=== PATIENT | female | born 1990 | race Caucasian/White ===

== ENCOUNTER 2016-12-25 12:24 | Outpatient (CLI) | payer MEDICAID ==
[2016-12-25 13:42] LABS: APPEARANCE,URINE CLOUDY; BILIRUBIN,URINE NEGATIVE (NEGATIVE); GLUCOSE, URINE NEGATIVE (NEGATIVE); KETONES,URINE NEGATIVE (NEGATIVE); LEUKOCYTE ESTERASE,URINE LARGE (NEGATIVE); NITRITE,URINE NEGATIVE (NEGATIVE); PROTEIN,URINE NEGATIVE (NEGATIVE); URINE SPECIFIC GRAVITY 1.008; UROBILINOGEN,URINE NEGATIVE mg/dL (<2.0)
[2016-12-25 13:46] LABS: URINE BARBITURATES SCREEN NEGATIVE; URINE METHADONE SCREEN NEGATIVE; URINE OPIATES LOW NEGATIVE; URINE PHENCYCLIDINE SCREEN NEGATIVE
--- NOTE | 2016-12-25 14:13 | Non Stress Test Report ---
Non Stress Test Datetime Report Generated by CPN: 12/25/2016 14:13 DEMOGRAPHIC EGA NST: 34.0 INDICATION Indication for Study: Other Indication for Study (NST) Other: lc VITAL SIGNS Temperature - NST: 99.2 Pulse - NST: 77 RESP - NST: 16 NBPSYS NST: 108 NBPDIA NST: 68 MONITORING Monitor Explained: Monitor Explained; Test Explained; Patient Verbalized Understanding Time on Monitor: 12/25/2016 13:00 Time off Monitor: 12/25/2016 13:57 NST Duration: 57 NST INTERVENTIONS NST Interventions: PO Hydration; Reposition Patient Physician Notified NST: H RASHIDA, CNM BABY A: [id number] BABY A Movement : Present Contraction Frequency : rare FHR Baseline : 125 Accelerations : 15X15 Decelerations : None Variability : Moderate 6-25bpm NST Review: Meets Criteria for Reactive NST NST Review and Verified By : JAKY DORSEY RN NST Results: Reactive NST REPORT Report Trigger: Send Report
--- NOTE | 2016-12-25 17:16 | L&D Discharge Summary ---
OB Discharge Summary Datetime Report Generated by CPN: 12/25/2016 17:16 DISCHARGE DIAGNOSIS Diagnosis/Symptoms: Other Diagnoses/Symptoms Other: migraine headache DIET/ACTIVITY/RESTRICTIONS Diet: Regular Activity: Normal Activity TEACHING/INSTRUCTIONS/REFERRALS Instructions Given To: patient Instructions Understood: Patient Verbalized Understanding Referrals: None Educational Materials- Other: kick counts /dehydration DISCHARGE INFORMATION Discharged AMA: No Discharge Date/Time: 12/25/2016 14:12 Discharged To: Home Discharge Provider Name: H Micha CNM Accompanied By: self Discharge Method: Ambulatory Condition: Stable FOLLOW UP INFORMATION Follow Up With: [facility] Follow Up On: As Scheduled Follow Up Phone Number: [facility] -
--- NOTE | 2016-12-27 22:50 | L&D General Admission ---
General Admit Datetime Report Generated by CPN: 12/27/2016 22:45 INFORMATION Patient Age: 26 (12/25/2016 12:24:QS system process) EDC: 02/05/2017 00:00 (12/25/2016 12:45:Ashley Bellavance, RNC) CARE Height (in): 66 (12/25/2016 14:15:QS system process) ALLERGIES Medication Allergies: No Known Allergies (08/30/2016) (12/25/2016 12:24:QS system process) DEMOGRAPHICS Address: [address] [place] [id number] (12/25/2016 12:24:QS system process) Zipcode: [address] (12/25/2016 12:24:QS system process) Home (12/25/2016 12:24:QS system process) Work (12/25/2016 12:24:QS system process) SSN: [id number] (12/25/2016 12:24:QS system process) Next of Kin Name: NAYELI FERREIRA (12/25/2016 12:24:QS system process) Next of Kin (12/25/2016 12:24:QS system process) Next of Kin Relationship: MO (12/25/2016 12:24:QS system process) Date of : 1990 (12/25/2016 12:24:QS system process) Marital Status: Single (12/25/2016 12:24:QS system process) Sex: Female (12/25/2016 12:24:QS system process) Race: (12/25/2016 12:24:QS system process) Ethnicity: Non- or (12/25/2016 12:24:QS system process) Latter Day: Other (12/25/2016 12:24:QS system process)
--- NOTE | 2016-12-27 22:50 | L&D Discharge Summary ---
OB Discharge Summary Datetime Report Generated by CPN: 12/27/2016 22:45 DISCHARGE DIAGNOSIS Diagnosis/Symptoms: Other Diagnoses/Symptoms Other: migraine headache Gestation: 34.0 DIET/ACTIVITY/RESTRICTIONS Diet: Regular Activity: Normal Activity TEACHING/INSTRUCTIONS/REFERRALS Instructions Given To: patient Instructions Understood: Patient Verbalized Understanding Referrals: None Educational Materials- Other: kick counts /dehydration DISCHARGE INFORMATION Discharged AMA: No Discharge Date/Time: 12/25/2016 14:12 Discharged To: Home Discharge Provider Name: H Micha CNM Accompanied By: self Discharge Method: Ambulatory Condition: Stable FOLLOW UP INFORMATION Follow Up With: [facility] Follow Up On: As Scheduled Follow Up Phone Number: [facility] -
--- NOTE | 2016-12-27 22:50 | Antepartum Discharge Summary ---
Antepartum DC Datetime Report Generated by CPN: 12/27/2016 22:45 DIET/ACTIVITY/RESTRICTIONS Diet: Regular (12/25/2016 14:00:Ashley Bellavance, RNC) Activity: Normal Activity (12/25/2016 14:00:Ashley Bellavance, RNC) TEACHING/INSTRUCTIONS/REFERRALS Instructions Given To: patient (12/25/2016 14:00:Ashley Bellavance, RNC) Instructions Understood: Patient Verbalized Understanding (12/25/2016 14:00:Ashley Bellavance, RNC) Referrals: None (12/25/2016 14:00:Ashley Bellavance, RNC) Educational Materials- Other: kick counts /dehydration (12/25/2016 14:00:Ashley Bellavance, RNC) DISCHARGE INFORMATION Discharged AMA: No (12/25/2016 14:00:Ashley Bellavance, RNC) Discharge Date/Time: 12/25/2016 14:12 (12/25/2016 14:00:Ashley Bellavance, RNC) Discharged To: Home (12/25/2016 14:00:Ashley Bellavance, RNC) Discharge Provider Name: Crispin Muse CNM (12/25/2016 14:00:Ashley Bellavance, RNC) Accompanied By: self (12/25/2016 14:00:Ashley Bellavance, RNC) Discharge Method: Ambulatory (12/25/2016 14:00:Ashley Bellavance, RNC) Condition: Stable (12/25/2016 14:00:Ashley Bellavance, RNC) FOLLOW UP INFORMATION Follow Up With: [facility] (12/25/2016 14:00:ASHA Manrique) Follow Up On: As Scheduled (12/25/2016 14:00:ASHA Manrique) Follow Up Phone Number: [facility] - (12/25/2016 14:00:ASHA Manrique)
--- NOTE | 2016-12-28 04:49 | Antepartum Discharge Summary ---
Antepartum DC Datetime Report Generated by CPN: 12/28/2016 04:46 DIET/ACTIVITY/RESTRICTIONS Diet: Regular (12/25/2016 14:00:Ashley Bellavance, RNC) Activity: Normal Activity (12/25/2016 14:00:Ashley Bellavance, RNC) TEACHING/INSTRUCTIONS/REFERRALS Instructions Given To: patient (12/25/2016 14:00:Ashley Bellavance, RNC) Instructions Understood: Patient Verbalized Understanding (12/25/2016 14:00:Ashley Bellavance, RNC) Referrals: None (12/25/2016 14:00:Ashley Bellavance, RNC) Educational Materials- Other: kick counts /dehydration (12/25/2016 14:00:Ashley Bellavance, RNC) DISCHARGE INFORMATION Discharged AMA: No (12/25/2016 14:00:Ashley Bellavance, RNC) Discharge Date/Time: 12/25/2016 14:12 (12/25/2016 14:00:Ashley Bellavance, RNC) Discharged To: Home (12/25/2016 14:00:Ashley Bellavance, RNC) Discharge Provider Name: Crispin Muse CNM (12/25/2016 14:00:Ashley Bellavance, RNC) Accompanied By: self (12/25/2016 14:00:Ashley Bellavance, RNC) Discharge Method: Ambulatory (12/25/2016 14:00:Ashley Bellavance, RNC) Condition: Stable (12/25/2016 14:00:Ashley Bellavance, RNC) FOLLOW UP INFORMATION Follow Up With: [facility] (12/25/2016 14:00:ASHA Manrique) Follow Up On: As Scheduled (12/25/2016 14:00:ASHA Manrique) Follow Up Phone Number: [facility] - (12/25/2016 14:00:ASHA Manrique)
--- NOTE | 2016-12-28 04:49 | L&D Discharge Summary ---
OB Discharge Summary Datetime Report Generated by CPN: 12/28/2016 04:46 DISCHARGE DIAGNOSIS Diagnosis/Symptoms: Other Diagnoses/Symptoms Other: migraine headache Gestation: 34.0 DIET/ACTIVITY/RESTRICTIONS Diet: Regular Activity: Normal Activity TEACHING/INSTRUCTIONS/REFERRALS Instructions Given To: patient Instructions Understood: Patient Verbalized Understanding Referrals: None Educational Materials- Other: kick counts /dehydration DISCHARGE INFORMATION Discharged AMA: No Discharge Date/Time: 12/25/2016 14:12 Discharged To: Home Discharge Provider Name: H Micha CNM Accompanied By: self Discharge Method: Ambulatory Condition: Stable FOLLOW UP INFORMATION Follow Up With: [facility] Follow Up On: As Scheduled Follow Up Phone Number: [facility] -
--- NOTE | 2016-12-28 04:49 | L&D General Admission ---
General Admit Datetime Report Generated by CPN: 12/28/2016 04:46 INFORMATION Patient Age: 26 (12/25/2016 12:24:QS system process) EDC: 02/05/2017 00:00 (12/25/2016 12:45:Ashley Bellavance, RNC) CARE Height (in): 66 (12/25/2016 14:15:QS system process) ALLERGIES Medication Allergies: No Known Allergies (08/30/2016) (12/25/2016 12:24:QS system process) DEMOGRAPHICS Address: [address] [place] [id number] (12/25/2016 12:24:QS system process) Zipcode: [address] (12/25/2016 12:24:QS system process) Home (12/25/2016 12:24:QS system process) Work (12/25/2016 12:24:QS system process) SSN: [id number] (12/25/2016 12:24:QS system process) Next of Kin Name: NAYELI FERREIRA (12/25/2016 12:24:QS system process) Next of Kin (12/25/2016 12:24:QS system process) Next of Kin Relationship: [place] (12/25/2016 12:24:QS system process) Date of : 1990 (12/25/2016 12:24:QS system process) Marital Status: Single (12/25/2016 12:24:QS system process) Sex: Female (12/25/2016 12:24:QS system process) Race: (12/25/2016 12:24:QS system process) Ethnicity: Non- or (12/25/2016 12:24:QS system process) Sikh: Other (12/25/2016 12:24:QS system process)
--- NOTE | 2016-12-28 10:50 | L&D Discharge Summary ---
OB Discharge Summary Datetime Report Generated by CPN: 12/28/2016 10:45 DISCHARGE DIAGNOSIS Diagnosis/Symptoms: Other Diagnoses/Symptoms Other: migraine headache Gestation: 34.0 DIET/ACTIVITY/RESTRICTIONS Diet: Regular Activity: Normal Activity TEACHING/INSTRUCTIONS/REFERRALS Instructions Given To: patient Instructions Understood: Patient Verbalized Understanding Referrals: None Educational Materials- Other: kick counts /dehydration DISCHARGE INFORMATION Discharged AMA: No Discharge Date/Time: 12/25/2016 14:12 Discharged To: Home Discharge Provider Name: H Micha CNM Accompanied By: self Discharge Method: Ambulatory Condition: Stable FOLLOW UP INFORMATION Follow Up With: [facility] Follow Up On: As Scheduled Follow Up Phone Number: [facility] -
--- NOTE | 2016-12-28 10:50 | Antepartum Discharge Summary ---
Antepartum DC Datetime Report Generated by CPN: 12/28/2016 10:45 DIET/ACTIVITY/RESTRICTIONS Diet: Regular (12/25/2016 14:00:Ashley Bellavance, RNC) Activity: Normal Activity (12/25/2016 14:00:Ashley Bellavance, RNC) TEACHING/INSTRUCTIONS/REFERRALS Instructions Given To: patient (12/25/2016 14:00:Ashley Bellavance, RNC) Instructions Understood: Patient Verbalized Understanding (12/25/2016 14:00:Ashley Bellavance, RNC) Referrals: None (12/25/2016 14:00:Ashley Bellavance, RNC) Educational Materials- Other: kick counts /dehydration (12/25/2016 14:00:Ashley Bellavance, RNC) DISCHARGE INFORMATION Discharged AMA: No (12/25/2016 14:00:Ashley Bellavance, RNC) Discharge Date/Time: 12/25/2016 14:12 (12/25/2016 14:00:Ashley Bellavance, RNC) Discharged To: Home (12/25/2016 14:00:Ashley Bellavance, RNC) Discharge Provider Name: Crispin Muse CNM (12/25/2016 14:00:Ashley Bellavance, RNC) Accompanied By: self (12/25/2016 14:00:Ashley Bellavance, RNC) Discharge Method: Ambulatory (12/25/2016 14:00:Ashley Bellavance, RNC) Condition: Stable (12/25/2016 14:00:Ashley Bellavance, RNC) FOLLOW UP INFORMATION Follow Up With: [facility] (12/25/2016 14:00:ASHA Manrique) Follow Up On: As Scheduled (12/25/2016 14:00:ASHA Manrique) Follow Up Phone Number: [facility] - (12/25/2016 14:00:ASHA Manrique)
--- NOTE | 2016-12-28 10:50 | L&D General Admission ---
General Admit Datetime Report Generated by CPN: 12/28/2016 10:45 INFORMATION Patient Age: 26 (12/25/2016 12:24:QS system process) EDC: 02/05/2017 00:00 (12/25/2016 12:45:Ashley Bellavance, RNC) CARE Height (in): 66 (12/25/2016 14:15:QS system process) ALLERGIES Medication Allergies: No Known Allergies (08/30/2016) (12/25/2016 12:24:QS system process) DEMOGRAPHICS Address: [address] [place] [id number] (12/25/2016 12:24:QS system process) Zipcode: [address] (12/25/2016 12:24:QS system process) Home (12/25/2016 12:24:QS system process) Work (12/25/2016 12:24:QS system process) SSN: [id number] (12/25/2016 12:24:QS system process) Next of Kin Name: NAYELI FERREIRA (12/25/2016 12:24:QS system process) Next of Kin (12/25/2016 12:24:QS system process) Next of Kin Relationship: [place] (12/25/2016 12:24:QS system process) Date of : 1990 (12/25/2016 12:24:QS system process) Marital Status: Single (12/25/2016 12:24:QS system process) Sex: Female (12/25/2016 12:24:QS system process) Race: (12/25/2016 12:24:QS system process) Ethnicity: Non- or (12/25/2016 12:24:QS system process) Tenriism: Other (12/25/2016 12:24:QS system process)
== END 2016-12-25 14:16 | disposition home or self-care (01) ==
LOC: LC 12:24
PROVIDERS: ATTEND Obstetrics & Gynecology
PROC: 4A1HXCZ Monitoring of Products of Conception, Cardiac Rate, External Approach (ICD-10-PCS; principal; 2016-12-25)
DX: O99.353 Diseases of the nervous system complicating pregnancy, third trimester (principal); G43.909 Migraine, unspecified, not intractable, without status migrainosus; Z3A.34 34 weeks gestation of pregnancy
CPT/HCPCS: 59025; 80307; 81001

== ENCOUNTER 2017-01-12 07:51 | Outpatient (CLI) | payer MEDICAID ==
[2017-01-12 08:43] LABS: ABSOLUTE LYMPHOCYTES (AUTO) 1.4 10^3/uL (0.5-4.7); ABSOLUTE NEUT (AUTO) 10.6 10^3/uL (1.7-8.2); BASOPHILS % (AUTO) 0.3 % (0-2); EOSINOPHILS % (AUTO) 0.2 % (0-6); HEMATOCRIT 28.4 % (36.0-47.0); HEMOGLOBIN 9.5 g/dL (12.0-15.5); HGB HCT DIFFERENCE 0.1; LYMPHOCYTES % (AUTO) 10.8 % (13-45); MEAN CORPUSCULAR HEMOGLOBIN 28.1 pg (27.0-33.4); MEAN CORPUSCULAR HGB CONC 33.4 g/dL (32.0-36.0); MEAN CORPUSCULAR VOLUME 84 fl (80-97); MONOCYTES % (AUTO) 7.6 % (3-13); RED BLOOD COUNT 3.38 10^6/uL (3.72-5.28); RED CELL DISTRIBUTION WIDTH 13.2 % (11.5-14.0); SEGMENTED NEUTROPHILS % (AUTO) 81.1 % (42-78); WHITE BLOOD COUNT 13.1 10^3/uL (4.0-10.5)
[2017-01-12] MEDS ORDERED: TERBUTALINE SULFATE INJ/PF 1 MG/1 ML SDV ONE (08:46)
[2017-01-12 08:59] LABS: APPEARANCE,URINE CLOUDY; BILIRUBIN,URINE NEGATIVE (NEGATIVE); GLUCOSE, URINE NEGATIVE (NEGATIVE); KETONES,URINE NEGATIVE (NEGATIVE); LEUKOCYTE ESTERASE,URINE LARGE (NEGATIVE); NITRITE,URINE NEGATIVE (NEGATIVE); PROTEIN,URINE NEGATIVE (NEGATIVE)
[2017-01-12 09:28] LABS: URINE BARBITURATES SCREEN NEGATIVE; URINE METHADONE SCREEN NEGATIVE; URINE OPIATES LOW NEGATIVE; URINE PHENCYCLIDINE SCREEN NEGATIVE
--- NOTE | 2017-01-12 09:43 | Operative Report ---
Operative Report DATE OF SURGERY: 01/12/17 PREOPERATIVE DIAGNOSIS: Breech POSTOPERATIVE DIAGNOSIS: Same OPERATION: External cephalic version SURGEON: CHERIE MELCHOR ANESTHESIA: Other - none TISSUE REMOVED OR ALTERED: None COMPLICATIONS: None ESTIMATED BLOOD LOSS: none INTRAOPERATIVE FINDINGS: Successful version PROCEDURE: Patient was given subcutaneous terbutaline. Consents were signed for external cephalic version. Ultrasound showed a lori breech baby with the head in the right upper quadrant. Adequate fluid was noted. The breech was delivered brought up out of the pelvis front flip attempted but was unsuccessful. Back flip was successful in converting the baby to vertex. We'll monitor for 30 minutes and hopefully she'll be able go home later today.
== END 2017-01-12 10:46 | disposition home or self-care (01) ==
LOC: LC 07:51
PROVIDERS: ATTEND Obstetrics & Gynecology
PROC: 4A1HXCZ Monitoring of Products of Conception, Cardiac Rate, External Approach (ICD-10-PCS; principal; 2017-01-12)
PROC: 10S0XZZ Reposition Products of Conception, External Approach (ICD-10-PCS; 2017-01-12)
DX: O32.1XX0 Maternal care for breech presentation, not applicable or unspecified (principal); Z3A.36 36 weeks gestation of pregnancy
CPT/HCPCS: 59025; 36415; 85025; 81005; 80307; 59412; J3105

== ENCOUNTER 2017-02-01 06:57 | Inpatient (IN) | payer MEDICAID ==
[2017-02-01] MEDS ORDERED: CEFAZOLIN 2 GM/D5W RTU 2 GM/50 ML RTUPB IV PRN (07:31)
[2017-02-01 07:52] LABS: URINE BARBITURATES SCREEN NEGATIVE; URINE METHADONE SCREEN NEGATIVE; URINE OPIATES LOW NEGATIVE; URINE PHENCYCLIDINE SCREEN NEGATIVE
[2017-02-01] MEDS ORDERED: RINGERS SOLUTION,LACTATED 1,000 ML IV PRN ×3 (07:59→11:10)
[2017-02-01 08:37] LABS: ABSOLUTE LYMPHOCYTES (AUTO) 1.4 10^3/uL (0.5-4.7); ABSOLUTE MONOCYTES (AUTO) 0.7 10^3/uL (0.1-1.4); ABSOLUTE NEUT (AUTO) 9.2 10^3/uL (1.7-8.2); BASOPHILS % (AUTO) 0.2 % (0-2); EOSINOPHILS % (AUTO) 0.2 % (0-6); HEMATOCRIT 29.3 % (36.0-47.0); HEMOGLOBIN 9.3 g/dL (12.0-15.5); HGB HCT DIFFERENCE -1.4; LYMPHOCYTES % (AUTO) 12.2 % (13-45); MEAN CORPUSCULAR HEMOGLOBIN 26.1 pg (27.0-33.4); MEAN CORPUSCULAR HGB CONC 31.8 g/dL (32.0-36.0); MEAN CORPUSCULAR VOLUME 82 fl (80-97); MONOCYTES % (AUTO) 6.5 % (3-13); RED BLOOD COUNT 3.56 10^6/uL (3.72-5.28); RED CELL DISTRIBUTION WIDTH 14.9 % (11.5-14.0); SEGMENTED NEUTROPHILS % (AUTO) 80.9 % (42-78); WHITE BLOOD COUNT 11.4 10^3/uL (4.0-10.5)
[2017-02-01] MEDS ORDERED: FENTANYL CITRATE INJ/PF 100 MCG/2 ML AMPUL IV PRN ×3 (09:59)
[2017-02-01] MEDS ORDERED: OXYCODONE-ACETAMINOPHEN 5-325 MG TABLET PO PRN ×3 (09:59→11:10)
[2017-02-01] MEDS ORDERED: PROMETHAZINE HCL INJ 25 MG/1 ML VIAL IV PRN ×3 (09:59→11:10)
[2017-02-01] MEDS ORDERED: MORPHINE SULFATE 10 MG/ML INJ IV PRN (09:59)
[2017-02-01] MEDS ORDERED: DIPHENHYDRAMINE HCL 50 MG/ML VIAL IV PRN (09:59)
[2017-02-01] MEDS ORDERED: MEPERIDINE HCL/PF INJ 25 MG/1 ML DISP.SYRIN IV PRN (09:59)
[2017-02-01] MEDS ORDERED: OXYTOCIN 10 UNIT/ML VIAL ONE (11:05)
[2017-02-01] MEDS ORDERED: FENTANYL CITRATE INJ/PF 100 MCG/2 ML AMPUL ONE (11:05)
[2017-02-01] MEDS ORDERED: MIDAZOLAM 2 MG/2 ML INJ ONE (11:06)
[2017-02-01] MEDS ORDERED: ACETAMINOPHEN 100 ML IV ONE (11:06)
[2017-02-01] MEDS ORDERED: HYDROMORPHONE HCL INJ/PF 2 MG/ML AMPULE IV PRN (11:10)
[2017-02-01] MEDS ORDERED: ACETAMINOPHEN 100 ML IV PRN (11:10)
[2017-02-01] MEDS ORDERED: SIMETHICONE 80 MG TAB.CHEW PO PRN (11:10)
[2017-02-01] MEDS ORDERED: DIPH/PERTUSS(ACELL)/TETANUS VAC/PF 0.5 ML SYR (>=10YO) IM PRN (11:10)
[2017-02-01] MEDS ORDERED: ACETAMINOPHEN 325 MG TABLET PO PRN (11:10)
[2017-02-01] MEDS ORDERED: MEASLES,MUMPS&RUBELLA VACC/PF 0.5 ML VIAL SUBCUT PRN (11:10)
[2017-02-01] MEDS ORDERED: OXYTOCIN/NORMAL SALINE 1,000 ML IV PRN (11:10)
--- NOTE | 2017-02-01 11:30 | Brief Operative Note ---
BRIEF OPERATIVE REPORT DATE OF SURGERY: 02/01/17 TIME OF SURGERY: 11:20 PREOPERATIVE DIAGNOSIS: 39+3ega, Primary HSV outbreak POSTOPERATIVE DIAGNOSIS: NEFTALI - delivered SURGEON: CRISTOBAL WELLS FINDINGS: normal uterus, normal tubes/ovaries. VMI, 3940g, Apgars 8/9 COMPLICATIONS: None ESTIMATED BLOOD LOSS: 700ml TISSUE REMOVED OR ALTERED: placenta and cord sent not to patholgy TECHNICAL PROCEDURE: Primary LTCS
--- NOTE | 2017-02-01 11:31 | PDOC DELIVERY SUMMARY ---
Delivery Summary - Maternal Hx : Hx Para: IV Hx # Term Pregnancies: 3 Hx Total # of Abortions (Sponateous & Elective): 2 Number of Living Children: 3 ELIZABETH: 02/05/17 Gestational Age: 39+3 Ruptured Membranes: AROM Time of Rupture: 09:58 Fluids: Clear - Delivery Labor: Not In Labor Presentation: Vertex Heart Rate Monitoring: Done Pre-Operatively Uterine Contraction Monitoring: External Support Person Present: Yes Location: OR : Scheduled Placenta: Within Normal Limits Placenta Description: normal Number of Vessels (Cord): 3 Nuchal Cord: No Delivery of Placenta Date: 02/01/17 Delivery of Placenta Time: 10:00 - Medications Type of Anesthesia:: Spinal - Intrapartum Medications Intrapartum Medications: Pitocin - Assess and Care Baby 1 Male Delivery of Infant Date: 02/01/17 Delivery of Infant Time: 09:59 Preprinted Number On Band: [id number] Infant Skin to Skin: No To Nursery At: 10:07 Mode of Transport: Bassinet Infant Weight: 39.4 kg Infant Length: 21.75 in - Delivery Personnel Nursery RN: FRED VALDIVIA RN: CALLY FARIAS RN: BLAIR VILLALBA MD: CRISTOBAL WELLS Can Sterilizer: TENA MIKE
[2017-02-01] MEDS: FENTANYL CITRATE INJ/PF 100 MCG/2 ML AMPUL ONE ×2 (11:52→12:06)
[2017-02-01] MEDS ORDERED: KETOROLAC TROMETHAMINE INJ/PF 30 MG/1 ML SDV IV ONE (12:00)
[2017-02-01] MEDS: OXYCODONE-ACETAMINOPHEN 5-325 MG TABLET PO PRN ×3 (15:05→23:50)
[2017-02-01] MEDS ORDERED: ONDANSETRON HCL INJ/PF 4 MG/2 ML SDV ONE (15:52)
[2017-02-01] MEDS ORDERED: KETOROLAC TROMETHAMINE 60 MG/2 ML SDV ONE (15:52)
[2017-02-01] MEDS ORDERED: PHENYLEPHRINE HCL INJ/PF 10 MG/1 ML SDV ONE (15:52)
[2017-02-01] MEDS: KETOROLAC TROMETHAMINE INJ/PF 30 MG/1 ML SDV IV SCH (17:51)
[2017-02-01] MEDS: DOCUSATE SODIUM 100 MG CAPSULE PO SCH (17:51)
[2017-02-01 23:56] LABS: APPEARANCE,URINE CLOUDY; BILIRUBIN,URINE NEGATIVE (NEGATIVE); GLUCOSE, URINE NEGATIVE (NEGATIVE); KETONES,URINE NEGATIVE (NEGATIVE); LEUKOCYTE ESTERASE,URINE LARGE (NEGATIVE); NITRITE,URINE NEGATIVE (NEGATIVE); PROTEIN,URINE NEGATIVE (NEGATIVE); URINE SPECIFIC GRAVITY 1.016
[2017-02-02] MEDS: KETOROLAC TROMETHAMINE INJ/PF 30 MG/1 ML SDV IV SCH (02:09)
[2017-02-02] MEDS: OXYCODONE-ACETAMINOPHEN 5-325 MG TABLET PO PRN ×4 (04:04→19:18)
[2017-02-02] MEDS: IBUPROFEN 800 MG TABLET PO SCH ×3 (08:09→21:56)
[2017-02-02 08:14] LABS: HEMOGLOBIN 8.8 g/dL (12.0-15.5); HGB HCT DIFFERENCE -0.6; MEAN CORPUSCULAR HEMOGLOBIN 26.6 pg (27.0-33.4); MEAN CORPUSCULAR HGB CONC 32.4 g/dL (32.0-36.0); MEAN CORPUSCULAR VOLUME 82 fl (80-97); RED CELL DISTRIBUTION WIDTH 14.8 % (11.5-14.0); WHITE BLOOD COUNT 13.5 10^3/uL (4.0-10.5)
[2017-02-02] MEDS: DOCUSATE SODIUM 100 MG CAPSULE PO SCH ×2 (10:17→17:45)
[2017-02-02] MEDS: PRENATAL VITAMIN W-O CA NO5/FE FUMARATE/FA CAPSULE PO SCH (10:18)
--- NOTE | 2017-02-02 10:51 | PDOC PROGRESS REPORT ---
Subjective-OB Subjective: Post Delivery Day: 26 year old. Denies any needs at this time Physical Exam (OB) Vital Signs: Temp Pulse Resp BP Pulse Ox 97.8 F 82 18 119/68 99 02/02/17 08:00 02/02/17 08:00 02/02/17 08:00 02/02/17 08:00 02/02/17 08:00 Intake & Output 02/01/17 02/02/17 02/03/17 06:59 06:59 06:59 Intake Total 4795 Output Total 4900 Balance -105 Weight 76.657 kg - Dressing Removed: No - incision open to air, no redness, swelling or drainage noted Incision: Well Approximated Closure Type: Surgical Glue - Lochia Lochia Amount: Small 10-25 ml Lochia Color: Rubra/Red - Abdomen Description: Soft, Round Hernia Present: No Bowel Sounds: Normoactive Flatus Presence: Present Stool: No Fundal Description: Firm, Midline Describe if Not Midline: pt currently refused fundal rub until medication takes effect Fundal Height: u/u - u/2 Objective-Diagnostic Laboratory: 02/02/17 07:35 02/01/17 02/01/17 02/02/17 07:18 07:50 07:35 WBC 13.5 H RBC 3.30 L Hgb 8.8 L Hct 27.0 L MCV 82 MCH 26.6 L MCHC 32.4 RDW 14.8 H Plt Count 165 Urine Color YELLOW Urine Appearance CLOUDY Urine pH 7.0 Ur Specific [place] 1.016 Urine Protein NEGATIVE Urine Glucose (UA) NEGATIVE Urine Ketones NEGATIVE Urine Blood NEGATIVE Urine Nitrite NEGATIVE Ur Leukocyte Esterase LARGE H Urine WBC (Auto) 28 Urine RBC (Auto) 1 Blood Type A NEGATIVE Antibody Screen POSITIVE 02/02/17 07:35 WBC RBC Hgb Hct MCV MCH MCHC RDW Plt Count Urine Color Urine Appearance Urine pH Ur Specific [place] Urine Protein Urine Glucose (UA) Urine Ketones Urine Blood Urine Nitrite Ur Leukocyte Esterase Urine WBC (Auto) Urine RBC (Auto) Blood Type A NEGATIVE Antibody Screen
[2017-02-03] MEDS: IBUPROFEN 800 MG TABLET PO SCH ×2 (02:24→09:17)
[2017-02-03 09:05] VITALS: BP 119/68
[2017-02-03] MEDS: DOCUSATE SODIUM 100 MG CAPSULE PO SCH (09:17)
[2017-02-03] MEDS: PRENATAL VITAMIN W-O CA NO5/FE FUMARATE/FA CAPSULE PO SCH (09:20)
--- NOTE | 2017-02-03 09:38 | PDOC PROGRESS REPORT ---
Subjective-OB Subjective: Post Delivery Day: 26 year old. Denies any needs at this time. Ready to go home. Physical Exam (OB) Vital Signs: Temp Pulse Resp BP Pulse Ox 98.3 F 82 17 119/68 100 02/03/17 09:01 02/03/17 09:01 02/03/17 09:01 02/03/17 09:01 02/03/17 09:01 Intake & Output 02/02/17 02/03/17 02/04/17 06:59 06:59 06:59 Intake Total 4795 1700 Output Total 4900 Balance -105 1700 Weight 76.657 kg - Dressing Removed: No Incision: Well Approximated Closure Type: op site - Lochia Lochia Amount: Scant < 10 ml Lochia Color: Rubra/Red - Abdomen Description: Soft, Round Hernia Present: No Bowel Sounds: Normoactive Flatus Presence: Present Stool: No Fundal Description: Firm, Midline Describe if Not Midline: pt currently refused fundal rub until medication takes effect Fundal Height: u/u - u/2 Objective-Diagnostic Laboratory: 02/02/17 07:35 02/02/17 07:35 Blood Type A NEGATIVE
--- NOTE | 2017-02-03 09:51 | PDOC DISCHARGE SUMMARY ---
Final Diagnosis Discharge Date: 02/03/17 - Final Diagnosis (1) Anemia Is this a current diagnosis for this admission?: Yes (2) Delivery by elective caesarean section Is this a current diagnosis for this admission?: Yes (3) HSV infection Is this a current diagnosis for this admission?: Yes (4) Insufficient antepartum care Is this a current diagnosis for this admission?: Yes (5) Is this a current diagnosis for this admission?: Yes (6) Smoker Is this a current diagnosis for this admission?: Yes Discharge Data - Discharge Medication Home Medications: Docusate Sodium [Colace 100 mg Capsule] 100 mg PO BID #30 capsule 02/03/17 Ferrous Sulfate 325 mg PO BID #60 tablet. 02/03/17 Ibuprofen [Motrin 800 mg Tablet] 800 mg PO Q6A #30 tablet 02/03/17 Oxycodone HCl/Acetaminophen [Percocet 5-325 mg Tablet] 1 tab PO Q4HP PRN #20 tablet 02/03/17 Gestational Age: 39.4 wks Reason(s) for Admission: Ceasarean Section-Repeat Procedures: Ultrasound Intrapartum Procedure(s): : Low Cervical, Transverse - Data Baby 1 Male at 1 minute: 8 at 5 minutes: 9 Weight: 3.94 kg Home with Mother: Yes Complications: No - Diagnosis Test Laboratory: Temp Pulse Resp BP Pulse Ox 98.3 F 82 17 119/68 100 02/03/17 09:01 02/03/17 09:01 02/03/17 09:01 02/03/17 09:01 02/03/17 09:01 02/01/17 02/01/17 02/02/17 07:18 07:50 07:35 RBC 3.56 L 3.30 L Hgb 9.3 L 8.8 L Hct 29.3 L 27.0 L Urine Opiates Screen NEGATIVE - Discharge information/Instructions Discharge Activity: Activity As Tolerated, Balance Activity w/Rest, No Driving, No Lifting Over 10 Pounds, No Lifting/Push/Pulling, Non-Ambulatory Child, Pelvic Rest, Slowly Increase Activity, No tub bath Discharge Diet: Regular Disposition: HOME, SELF-CARE Follow up with: [facility] in: 1, Weeks
[2017-02-03] MEDS ORDERED: BENZOCAINE/MENTHOL AEROSOL SPRAY 56 ML TOP PRN (10:23)
--- NOTE | 2017-02-26 13:45 | Non Stress Test Report ---
Non Stress Test Datetime Report Generated by CPN: 02/26/2017 13:45 DEMOGRAPHIC EGA NST: 36.4 INDICATION Indication for Study: Ordered by Provider MONITORING Monitor Explained: Monitor Explained; Test Explained; Patient Verbalized Understanding Monitor Explained: Monitor Explained; Test Explained; Patient Verbalized Understanding Time on Monitor: 01/12/2017 08:05 Time off Monitor: 01/12/2017 10:31 NST Duration: 146 NST INTERVENTIONS NST Interventions: PO Hydration; Reposition Patient NST Interventions: None Physician Notified NST: Dr. Espinoza Physician Notified NST: Dr. Espinoza BABY A: [id number] BABY A Movement : Present Movement : Present Contraction Frequency : occasional FHR Baseline : 125 Accelerations : 15X15 Decelerations : None Variability : Moderate 6-25bpm NST Review: Meets Criteria for Reactive NST NST Review and Verified By : Jen Martínez RN NST Results: Reactive NST REPORT Report Trigger: Send Report
--- NOTE | 2017-03-15 10:10 | Operative Report ---
Operative Report DATE OF SURGERY: 02/01/17 PREOPERATIVE DIAGNOSIS: 39+3ega, Primary HSV outbreak POSTOPERATIVE DIAGNOSIS: NEFTALI - delivered OPERATION: Primary LTCS SURGEON: CRISTOBAL WELLS ANESTHESIA: Spinal TISSUE REMOVED OR ALTERED: placenta and cord sent not to patholgy ESTIMATED BLOOD LOSS: 700ml INTRAOPERATIVE FINDINGS: normal uterus, normal tubes/ovaries. VMI, 3940g, Apgars 8/9delivery at 0959 PROCEDURE: Medical Lab Specialist:[None] Anesthesia: Spinal Anesthesia provider: [Ty La MD, Genet Ulloa CRNA] Estimated blood loss: [700ml] Urine output: [150ml] IV fluids: [1000ml] Indications: [26yo at 39+3ega presents for Primary C/S due to HSV outbreak at term. The risk/benefits /alternatives for Primary section were reviewed and the patient desires to proceed with planned primary section. She also reported undesired fertility, however she declined Bilateral tubal ligation intraoperatively.] Procedure: The patient was taken to the operating room where spinal anesthesia was obtained and found to be adequate. She was then prepped and draped in the normal sterile fashion and placed in the dorsal supine position with a leftward tilt. A Pfannenstiel skin incision was then made and carried through to the underlying layers of the fascia with the scalpel. The fascia was incised in the midline and the incision extended laterally with the Bird scissors. The superior aspect of the fascial incision was then grasped with [place] clamps elevated and the underlying rectus muscles dissected off [bluntly]. Attention was then turned to the inferior aspect of the fascial incision which in a similar fashion was grasped, tented up with Olivier clamps, and the rectus muscles dissected off [bluntly]. The rectus muscles were then in the midline and the peritoneum at the amount identified and entered [bluntly]. The peritoneal incision was then extended superiorly and inferiorly with good visualization of the bladder. The bladder blade was inserted and the vesicouterine peritoneum identified grasped with [place] pickups and entered sharply with the Metzenbaum scissors. This incision was then extended laterally with the Metzenbaum scissors and a bladder flap created digitally. The bladder blade was then reinserted and the lower uterine segment incised in a transverse fashion with the scalpel. The uterine incision was then extended bluntly. The bladder blade was removed and the infant's head was delivered from cephalic presentation atraumatically. The nose and mouth were suctioned and the cord doubly clamped and cut. And the was handed off to waiting pediatricians. The placenta was then delivered spontaneously and the uterus exteriorized and cleared of all clots and debris. The uterine incision was then repaired with 1- 0 Vicryl in a running locked fashion. A second layer of the same suture was used to obtain hemostasis via imbrication of the initial layer. The bladder flap was then repaired with 3-0 chromic in a running fashion. The patient at this time declined tubal sterilization. Therefore procedure was not performed per patient request. The uterus was returned to the patient's abdomen and Interceed was placed overlying the uterine incision to prevent adhesions. The gutters were cleared of all clots and debris. All operative sites were noted to be hemostatic. The fascia was reapproximated with 0 Vicryl in a running fashion from each lateral edge to the midline. The skin was closed with 3-0 Monocryl in a running subcuticular fashion with overlying Dermabond for additional dressing as well as wound closure. The patient tolerated the procedure well. Sponge lap needle and instrument counts are correct times 2. 2 g of Ancef were given prior to skin incision. The patient was taken to the recovery area awake and in stable condition.
== END 2017-02-03 12:05 | disposition home or self-care (01) | DRG 766 ==
LOC: 2S 06:57
PROVIDERS: ADMIT Student in an Organized Health Care Education/Training Program; ATTEND Student in an Organized Health Care Education/Training Program
PROC: 4A1HXCZ Monitoring of Products of Conception, Cardiac Rate, External Approach (ICD-10-PCS; 2017-02-01)
PROC: 10D00Z1 Extraction of Products of Conception, Low, Open Approach (ICD-10-PCS; principal; 2017-02-01 09:30)
PROC: 3E0234Z Introduction of Serum, Toxoid and Vaccine into Muscle, Percutaneous Approach (ICD-10-PCS; 2017-02-02)
DX: O98.52 Other viral diseases complicating childbirth (principal); B00.9 Herpesviral infection, unspecified; O26.893 Other specified pregnancy related conditions, third trimester; Z67.11 Type A blood, Rh negative; O99.02 Anemia complicating childbirth; D64.9 Anemia, unspecified; O99.334 Smoking (tobacco) complicating childbirth; F17.210 Nicotine dependence, cigarettes, uncomplicated; Z3A.39 39 weeks gestation of pregnancy; Z37.0 Single live birth
CPT/HCPCS: 1961; 36415; 80307; 81001; 85025; 85027; 85461; 86850; 86870; 86900; 86901; 94799; J0131; J0690; J1885; J2250; J2370; J2405; J2590; J2790; J3010; J3490; J7120

== ENCOUNTER 2019-03-11 00:40 | Emergency (ER) | payer MEDICAID ==
[2019-03-11 00:46] VITALS: BP 117/76
[2019-03-11 01:11] LABS: ABSOLUTE BASOPHILS # (AUTO) 0.1 10^3/uL (0.0-0.2); ABSOLUTE MONOCYTES (AUTO) 0.5 10^3/uL (0.1-1.4); ABSOLUTE NEUT (AUTO) 7.1 10^3/uL (1.7-8.2); BASOPHILS % (AUTO) 0.6 % (0-2); EOSINOPHILS % (AUTO) 0.4 % (0-6); HEMATOCRIT 40.7 % (36.0-47.0); LYMPHOCYTES % (AUTO) 20.5 % (13-45); MEAN CORPUSCULAR HGB CONC 34.5 g/dL (32.0-36.0); MEAN CORPUSCULAR VOLUME 90 fl (80-97); PLATELET COUNT 207 10^3/uL (150-450); RED BLOOD COUNT 4.52 10^6/uL (3.72-5.28); RED CELL DISTRIBUTION WIDTH 13.1 % (11.5-14.0); SEGMENTED NEUTROPHILS % (AUTO) 73.5 % (42-78); TOTAL CELLS COUNTED % (AUTO) 100 %; WHITE BLOOD COUNT 9.7 10^3/uL (4.0-10.5)
[2019-03-11 01:31] LABS: ALBUMIN 4.4 g/dL (3.5-5.0); ALKALINE PHOSPHATASE 56 U/L (38-126); ANION GAP 9 (5-19); ASPARTATE AMINO TRANSFERASE 20 U/L (14-36); BILIRUBIN,DIRECT 0.3 mg/dL (0.0-0.4); BILIRUBIN,TOTAL 0.4 mg/dL (0.2-1.3); BLOOD UREA NITROGEN 9 mg/dL (7-20); CALCIUM 9.4 mg/dL (8.4-10.2); CARBON DIOXIDE 24 mmol/L (22-30); CHLORIDE 107 mmol/L (98-107); GLUCOSE 95 mg/dL (75-110); POTASSIUM 3.9 mmol/L (3.6-5.0); SODIUM 140.4 mmol/L (137-145); TOTAL PROTEIN 7.3 g/dL (6.3-8.2)
[2019-03-11 01:33] LABS: ALANINE AMINOTRANSFERASE 26 U/L (9-52)
[2019-03-11 03:22] LABS: APPEARANCE,URINE CLOUDY; BILIRUBIN,URINE SMALL (NEGATIVE); COLOR,URINE AMBER; GLUCOSE, URINE NEGATIVE (NEGATIVE); KETONES,URINE TRACE mg/dL (NEGATIVE); LEUKOCYTE ESTERASE,URINE MODERATE (NEGATIVE); NITRITE,URINE NEGATIVE (NEGATIVE); PROTEIN,URINE 30 mg/dL (NEGATIVE); URINE SPECIFIC GRAVITY 1.033
== END 2019-03-11 04:00 | disposition left against medical advice (07) ==
LOC: ER 00:40
DX: Z53.21 Procedure and treatment not carried out due to patient leaving prior to being seen by health care provider (principal)
CPT/HCPCS: 36415; 80053; 81001; 81025; 85025